=== PATIENT | male | born 1960 | race Caucasian/White ===

== ENCOUNTER 2021-04-26 12:17 | Inpatient (IN) ==
[2021-04-26 13:08] LABS: Basophils % 0.1 %; Hematocrit 33.3 % (37.5-50.1); Hemoglobin 11.2 g/dL (12.9-16.9); Immature Granulocytes % 0.6 % (0-4); Lymphocytes # 1.4 K/mcL (0.6-4.6); Lymphocytes % 15.9 %; Mean Corpuscular HGB Conc 33.6 g/dL (31.6-35.5); Mean Corpuscular Hemoglobin 30.6 pg (28.0-33.3); Mean Platelet Volume 10.4 fL (9.4-12.4); Monocytes # 0.6 K/mcL (0.0-1.3); Monocytes % 7.4 %; Neutrophils # 6.6 K/mcL (1.6-8.9); Platelet Count 185 K/mcL (140-400); Red Blood Count 3.66 M/mcL (4.19-5.50); Red Cell Distribution Width 12.5 % (11.5-14.5); White Blood Count 8.7 K/mcL (4.3-11.1)
[2021-04-26 13:28] LABS: BUN/Creatinine Ratio 28 (6-26); Blood Urea Nitrogen 29 mg/dL (8-23); Calcium 9.7 mg/dL (8.6-10.3); Carbon Dioxide 30 mEq/L (23-29); Chloride 98 mEq/L (98-107); Glucose 433 mg/dL (70-105); Osmolality,Calculated 308 (280-300); Potassium 3.6 mEq/L (3.5-5.1); Sodium 137 mEq/L (136-145); eGFR For African Americans > 60 (> 60); eGFR For Non-African Americans > 60 (> 60)
[2021-04-26 13:59] LABS: Bilirubin,Urine Negative (Negative); Blood,Urine Negative (Negative); Clarity,Urine Clear (Clear); Color,Urine Colorless (Yellow); Glucose,Urine (UA) >=1000 mg/dL (Normal); Ketones,Urine Negative (Negative); Leukocyte Esterase,Urine Negative (Negative); Nitrite,Urine Negative (Negative); Protein,Urine Trace mg/dL (Neg-Trace); RBC,Urine 0-3 per hpf (0-3); Specific Gravity,Urine 1.029 (1.010-1.025); Urobilinogen,Urine Normal (Normal); WBC,Urine 0-3 per hpf (0-3)
[2021-04-26] MEDS ORDERED: *HR* HYDROmorphone (PF) 1 MG/ML SYRINGE IVP ONE (16:55)
[2021-04-26] MEDS ORDERED: Ibuprofen 400 MG TABLET PO PRN (17:20)
[2021-04-26] MEDS ORDERED: Melatonin 3 MG TABLET PO PRN (17:20)
[2021-04-26] MEDS ORDERED: Ondansetron 4 MG/2 ML VIAL IVP PRN (17:20)
[2021-04-26] MEDS ORDERED: Naloxone 0.4 MG/ML INJ IVP PRN (17:20)
[2021-04-26] MEDS ORDERED: Mag Hydrox/Al Hydrox/Simeth 30 ML UDC PO PRN (17:20)
[2021-04-26] MEDS ORDERED: *HR* Dextrose 50 % in Water (Vial) 50 ML VIAL IVP PRN (18:45)
[2021-04-26] MEDS ORDERED: D5% in Water 1,000 ML IVC PRN (18:45)
[2021-04-26] MEDS ORDERED: Dextrose Gel 15 GM/37.5 ML TUBE PO PRN ×2 (18:45)
[2021-04-26] MEDS: *HR* OxyCODONE Immed Rel 5 MG TABLET PO PRN (20:10)
[2021-04-26] MEDS: Insulin LISPRO 300 UNITS/3 ML VIAL SUBQ SCH (20:56)
[2021-04-27] MEDS: Insulin LISPRO 300 UNITS/3 ML VIAL SUBQ SCH ×6 (00:06→16:45)
[2021-04-27] MEDS: *HR* HYDROcodone/Acet 5/325 mg TABLET PO PRN ×2 (00:08→06:38)
[2021-04-27] MEDS: *HR* OxyCODONE Immed Rel 5 MG TABLET PO PRN ×4 (03:25→21:07)
[2021-04-27 08:00] LABS: Basophils % 0.4 %; Eosinophils # 0.2 K/mcL (0.0-0.6); Eosinophils % 1.9 %; Hematocrit 34.3 % (37.5-50.1); Hemoglobin 11.2 g/dL (12.9-16.9); Immature Granulocytes % 0.6 % (0-4); Lymphocytes # 2.9 K/mcL (0.6-4.6); Lymphocytes % 33.9 %; Mean Corpuscular HGB Conc 32.7 g/dL (31.6-35.5); Mean Corpuscular Hemoglobin 30.4 pg (28.0-33.3); Mean Platelet Volume 10.5 fL (9.4-12.4); Monocytes # 0.8 K/mcL (0.0-1.3); Monocytes % 8.8 %; Neutrophils # 4.7 K/mcL (1.6-8.9); Platelet Count 166 K/mcL (140-400); Red Blood Count 3.69 M/mcL (4.19-5.50); Red Cell Distribution Width 12.4 % (11.5-14.5); Segmented Neutrophils % 54.4 %; White Blood Count 8.5 K/mcL (4.3-11.1)
[2021-04-27 08:21] LABS: BUN/Creatinine Ratio 18 (6-26); Blood Urea Nitrogen 17 mg/dL (8-23); Calcium 9.3 mg/dL (8.6-10.3); Carbon Dioxide 30 mEq/L (23-29); Chloride 100 mEq/L (98-107); Glucose 397 mg/dL (70-105); Osmolality,Calculated 300 (280-300); Potassium 3.6 mEq/L (3.5-5.1); Sodium 136 mEq/L (136-145); eGFR For African Americans > 60 (> 60); eGFR For Non-African Americans > 60 (> 60)
[2021-04-27 09:20] LABS: Estimated Average Glucose 177 mg/dl; Hemoglobin A1C 7.8 %
[2021-04-27] MEDS ORDERED: *HR* HYDROmorphone (PF) 1 MG/ML SYRINGE IVP ONE (10:09)
[2021-04-27] MEDS ORDERED: *HR* OxyCODONE/APAP 7.5/325 TABLET PO PRN (10:09)
[2021-04-27] MEDS: Gabapentin 400 MG CAPSULE PO SCH ×3 (10:12→21:07)
[2021-04-27] MEDS ORDERED: *HR* HYDROmorphone (PF) 1 MG/ML SYRINGE IVP PRN (10:22)
[2021-04-27] MEDS ORDERED: Insulin DETEMIR 100 UNIT/ML X5UNITS SUBQ SCH (21:00)
[2021-04-28] MEDS: Insulin LISPRO 300 UNITS/3 ML VIAL SUBQ SCH ×8 (02:50→23:01)
[2021-04-28] MEDS: *HR* OxyCODONE Immed Rel 5 MG TABLET PO PRN ×4 (02:56→22:50)
[2021-04-28] MEDS ORDERED: *HR* Midazolam HCl 2 MG/2 ML VIAL ONE (11:08)
[2021-04-28] MEDS ORDERED: *HR* Propofol 200 MG/20 ML VIAL IVP ONE ×3 (11:08→17:09)
[2021-04-28] MEDS ORDERED: *HR* FentaNYL (PF) 100 MCG/2 ML VIAL ONE (11:08)
[2021-04-28] MEDS ORDERED: Lidocaine HCL 4 ML Topical Solution (Laryng-O-Jet Kit Sterile Pak) TP ONE (11:09)
[2021-04-28] MEDS ORDERED: Ondansetron 4 MG/2 ML VIAL ONE (11:09)
[2021-04-28] MEDS ORDERED: Lidocaine -MPF 2% 2 ML VIAL ONE ×2 (11:09→11:14)
[2021-04-28] MEDS ORDERED: *HR* Rocuronium Bromide 50 MG/5 ML VIAL ONE (11:09)
[2021-04-28] MEDS ORDERED: Heparin 1,000 UNITS/500 mL 500 ML ONE (11:14)
[2021-04-28] MEDS: Gabapentin 400 MG CAPSULE PO SCH ×2 (11:18→18:37)
[2021-04-28] MEDS ORDERED: *HR* Remifentanil 1 MG VIAL IVP ONE ×2 (11:18→15:31)
[2021-04-28] MEDS ORDERED: *HR* Phenylephrine 10 MG/ML VIAL ONE (11:21)
[2021-04-28] MEDS ORDERED: Naloxone 0.4 MG/ML INJ IVP PRN ×2 (11:23→18:53)
[2021-04-28] MEDS ORDERED: Ondansetron 4 MG/2 ML VIAL IVP PRN (11:23)
[2021-04-28] MEDS ORDERED: Albuterol 2.5 MG/3 ML NEBULIZER IH PRN (11:23)
[2021-04-28] MEDS ORDERED: *HR* FentaNYL (PF) 100 MCG/2 ML VIAL IVP PRN (11:23)
[2021-04-28] MEDS ORDERED: Nitroglycerin 0.4 MG TAB.SUBL SL PRN (11:23)
[2021-04-28] MEDS ORDERED: Sugammadex Sodium 200 MG/2 ML VIAL IV ONE ×2 (11:25→14:26)
[2021-04-28] MEDS ORDERED: 0.9 % Sodium Chloride 250 ML IVC SCH (11:30)
[2021-04-28] MEDS ORDERED: Vancomycin 1,000 MG VIAL ONE (12:25)
[2021-04-28] MEDS ORDERED: EPHEDrine 50 MG/ML VIAL ONE (13:39)
[2021-04-28] MEDS ORDERED: *HR* HYDROMORPHONE 2 MG/ML VIAL ONE (16:37)
[2021-04-28] MEDS: *HR* HYDROmorphone (PF) 1 MG/ML SYRINGE IVP PRN ×4 (17:28→17:43)
[2021-04-28] MEDS ORDERED: Polymyxin B Sulfate 500,000 UNIT, Sodium Chloride IRRigation 1,000 ML IR ONE (17:30)
[2021-04-28] MEDS ORDERED: Ringers Solution, Lactated 1,000 ML ONE (17:46)
[2021-04-28] MEDS ORDERED: Ibuprofen 400 MG TABLET PO PRN (18:53)
[2021-04-28] MEDS ORDERED: SILDENAFIL CITRATE 100 MG PO PRN (18:53)
[2021-04-28] MEDS ORDERED: Ibuprofen 800 MG TABLET PO PRN (18:53)
[2021-04-28] MEDS: *HR* HYDROcodone/Acet 5/325 mg TABLET PO PRN (20:14)
[2021-04-28] MEDS: tiZANidine 4 MG TABLET PO PRN (20:40)
[2021-04-28] MEDS: Budesonide/Formoterol 160/4.5 1 PUFF INH IH SCH (20:52)
[2021-04-28] MEDS ORDERED: Insulin DETEMIR 100 UNIT/ML X5UNITS SUBQ SCH (21:00)
[2021-04-28] MEDS: QUEtiapine Fumarate 25 MG TABLET PO SCH (21:56)
[2021-04-28] MEDS ORDERED: ceFAZolin 2,000 MG in 0.9 % Sodium Chloride 100 ML IVPB ONE (23:28)
[2021-04-29] MEDS: Insulin LISPRO 300 UNITS/3 ML VIAL SUBQ SCH ×4 (00:58→16:53)
[2021-04-29] MEDS: Gabapentin 400 MG CAPSULE PO SCH ×4 (00:59→20:24)
[2021-04-29] MEDS: *HR* OxyCODONE Immed Rel 5 MG TABLET PO PRN ×5 (02:47→21:31)
[2021-04-29] MEDS ORDERED: Insulin Regular, Human 100 UNIT/ML SUBQ ONE (04:05)
[2021-04-29] MEDS ORDERED: Insulin LISPRO 300 UNITS/3 ML VIAL SUBQ ONE (05:30)
[2021-04-29] MEDS: *HR* HYDROcodone/Acet 5/325 mg TABLET PO PRN (06:01)
[2021-04-29] MEDS: Budesonide/Formoterol 160/4.5 1 PUFF INH IH SCH ×2 (07:14→20:36)
[2021-04-29] MEDS: Loratadine 10 MG TABLET PO SCH (07:53)
[2021-04-29] MEDS: Cholecalciferol (D-3) 1,000 UNIT (25MCG) TABLET PO SCH (07:54)
[2021-04-29] MEDS: Ringers Solution, Lactated 1,000 ML IVC SCH ×2 (07:54→12:39)
[2021-04-29] MEDS: Fluticasone Propionate Nasal 50 MCG/SPRAY BOTTLE NS SCH (07:57)
[2021-04-29] MEDS ORDERED: Insulin DETEMIR 100 UNIT/ML X5UNITS SUBQ SCH (21:00)
[2021-04-29] MEDS: QUEtiapine Fumarate 25 MG TABLET PO SCH (21:38)
[2021-04-30 01:11] LABS: Basophils % 0.2 %; Eosinophils # 0.1 K/mcL (0.0-0.6); Eosinophils % 0.7 %; Hematocrit 25.4 % (37.5-50.1); Immature Granulocytes % 0.6 % (0-4); Lymphocytes # 2.3 K/mcL (0.6-4.6); Lymphocytes % 26.1 %; Mean Corpuscular HGB Conc 33.9 g/dL (31.6-35.5); Mean Corpuscular Hemoglobin 31.6 pg (28.0-33.3); Mean Corpuscular Volume 93.4 fL (83.0-100.0); Mean Platelet Volume 10.3 fL (9.4-12.4); Monocytes # 1.2 K/mcL (0.0-1.3); Monocytes % 13.7 %; Neutrophils # 5.2 K/mcL (1.6-8.9); Platelet Count 139 K/mcL (140-400); Red Blood Count 2.72 M/mcL (4.19-5.50); Red Cell Distribution Width 12.7 % (11.5-14.5); Segmented Neutrophils % 58.7 %; White Blood Count 8.8 K/mcL (4.3-11.1)
[2021-04-30 01:12] LABS: Hemoglobin 8.6 g/dL (12.9-16.9)
[2021-04-30 01:30] LABS: BUN/Creatinine Ratio 31 (6-26); Blood Urea Nitrogen 39 mg/dL (8-23); Calcium 8.6 mg/dL (8.6-10.3); Carbon Dioxide 28 mEq/L (23-29); Chloride 97 mEq/L (98-107); Glucose 428 mg/dL (70-105); Osmolality,Calculated 302 (280-300); Potassium 3.9 mEq/L (3.5-5.1); Sodium 132 mEq/L (136-145); eGFR For African Americans > 60 (> 60); eGFR For Non-African Americans 58 (> 60)
[2021-04-30] MEDS: *HR* OxyCODONE Immed Rel 5 MG TABLET PO PRN ×5 (02:26→21:15)
[2021-04-30] MEDS: Insulin LISPRO 300 UNITS/3 ML VIAL SUBQ SCH ×3 (04:08→17:13)
[2021-04-30] MEDS: Budesonide/Formoterol 160/4.5 1 PUFF INH IH SCH ×2 (07:35→22:06)
[2021-04-30] MEDS: Cholecalciferol (D-3) 1,000 UNIT (25MCG) TABLET PO SCH (08:22)
[2021-04-30] MEDS: Gabapentin 400 MG CAPSULE PO SCH ×3 (08:23→21:15)
[2021-04-30] MEDS: Fluticasone Propionate Nasal 50 MCG/SPRAY BOTTLE NS SCH (08:25)
[2021-04-30] MEDS: Loratadine 10 MG TABLET PO SCH (08:25)
[2021-04-30] MEDS: Insulin DETEMIR 100 UNIT/ML X5UNITS SUBQ SCH ×2 (09:51→21:17)
[2021-04-30] MEDS: tiZANidine 4 MG TABLET PO PRN ×2 (09:51→17:11)
[2021-04-30] MEDS: QUEtiapine Fumarate 25 MG TABLET PO SCH (21:17)
[2021-05-01 01:02] LABS: Basophils # 0.1 K/mcL (0.0-0.2); Basophils % 0.4 %; Eosinophils # 0.1 K/mcL (0.0-0.6); Hematocrit 26.5 % (37.5-50.1); Hemoglobin 8.7 g/dL (12.9-16.9); Immature Granulocytes % 0.8 % (0-4); Lymphocytes # 3.2 K/mcL (0.6-4.6); Lymphocytes % 28.1 %; Mean Corpuscular HGB Conc 32.8 g/dL (31.6-35.5); Mean Corpuscular Hemoglobin 30.6 pg (28.0-33.3); Mean Corpuscular Volume 93.3 fL (83.0-100.0); Mean Platelet Volume 10.7 fL (9.4-12.4); Monocytes # 1.4 K/mcL (0.0-1.3); Monocytes % 12.5 %; Neutrophils # 6.6 K/mcL (1.6-8.9); Platelet Count 177 K/mcL (140-400); Red Blood Count 2.84 M/mcL (4.19-5.50); Red Cell Distribution Width 12.5 % (11.5-14.5); Segmented Neutrophils % 57.2 %; White Blood Count 11.5 K/mcL (4.3-11.1)
[2021-05-01 01:22] LABS: BUN/Creatinine Ratio 30 (6-26); Blood Urea Nitrogen 32 mg/dL (8-23); Calcium 9.1 mg/dL (8.6-10.3); Carbon Dioxide 27 mEq/L (23-29); Chloride 96 mEq/L (98-107); Glucose 284 mg/dL (70-105); Osmolality,Calculated 285 (280-300); Potassium 3.9 mEq/L (3.5-5.1); Sodium 129 mEq/L (136-145); eGFR For African Americans > 60 (> 60); eGFR For Non-African Americans > 60 (> 60)
[2021-05-01] MEDS: tiZANidine 4 MG TABLET PO PRN ×2 (01:27→13:39)
[2021-05-01] MEDS: *HR* OxyCODONE Immed Rel 5 MG TABLET PO PRN ×4 (01:27→13:38)
[2021-05-01] MEDS: Budesonide/Formoterol 160/4.5 1 PUFF INH IH SCH (07:51)
[2021-05-01] MEDS: Insulin DETEMIR 100 UNIT/ML X5UNITS SUBQ SCH (09:30)
[2021-05-01] MEDS: Insulin LISPRO 300 UNITS/3 ML VIAL SUBQ SCH ×2 (09:30→11:58)
[2021-05-01] MEDS: Gabapentin 400 MG CAPSULE PO SCH ×2 (09:30→15:24)
[2021-05-01] MEDS: Loratadine 10 MG TABLET PO SCH (09:30)
[2021-05-01] MEDS: Cholecalciferol (D-3) 1,000 UNIT (25MCG) TABLET PO SCH (09:30)
[2021-05-01] MEDS: Fluticasone Propionate Nasal 50 MCG/SPRAY BOTTLE NS SCH (09:31)
[2021-05-01 11:16] VITALS: BP 115/68; PULSE 74; TEMP 98.7; O2SAT 97
[2021-05-01] MEDS: *HR* HYDROcodone/Acet 5/325 mg TABLET PO PRN (15:25)
== END 2021-05-01 15:54 | disposition home health service (06) | DRG 304 ==
LOC: EMEROOARM 12:17 → 3NENU 12:17 → SUATTDRO 17:23 → 3NENU 18:41
PROVIDERS: ADMIT Hospitalist; ATTEND Internal Medicine

== ENCOUNTER 2022-03-02 18:21 | Observation (INO) ==
[2022-03-02] MEDS ORDERED: Ondansetron ODT 4 MG TAB.RAPDIS SL PRN (19:25)
[2022-03-02 19:34] LABS: Basophils # 0.1 K/mcL (0.0-0.2); Basophils % 0.7 %; Eosinophils # 0.1 K/mcL (0.0-0.6); Eosinophils % 1.5 %; Hematocrit 20.8 % (37.5-50.1); Hemoglobin 6.8 g/dL (12.9-16.9); Immature Granulocytes % 0.9 % (0-4); Lymphocytes # 3.1 K/mcL (0.6-4.6); Lymphocytes % 35.8 %; Mean Corpuscular HGB Conc 32.7 g/dL (31.6-35.5); Mean Corpuscular Hemoglobin 30.5 pg (28.0-33.3); Mean Corpuscular Volume 93.3 fL (83.0-100.0); Mean Platelet Volume 10.4 fL (9.4-12.4); Monocytes # 0.9 K/mcL (0.0-1.3); Monocytes % 10.3 %; Neutrophils # 4.3 K/mcL (1.6-8.9); Nucleated Red Blood Cells 1.2 /100 WBC (0); Platelet Count 151 K/mcL (140-400); Red Blood Count 2.23 M/mcL (4.19-5.50); Red Cell Distribution Width 17.2 % (11.5-14.5); Segmented Neutrophils % 50.8 %; White Blood Count 8.5 K/mcL (4.3-11.1)
[2022-03-02] MEDS ORDERED: Pantoprazole 40 MG VIAL IVP SCH (19:47)
[2022-03-02 19:55] LABS: BUN/Creatinine Ratio 50 (6-26); Blood Urea Nitrogen 70 mg/dL (8-23); Calcium 8.6 mg/dL (8.6-10.3); Carbon Dioxide 25 mEq/L (23-29); Chloride 105 mEq/L (98-107); Glucose 230 mg/dL (70-105); Osmolality,Calculated 312 (280-300); Potassium 3.9 mEq/L (3.5-5.1); Sodium 137 mEq/L (136-145); eGFR For African Americans > 60 (> 60); eGFR For Non-African Americans 52 (> 60)
[2022-03-02] MEDS ORDERED: Iopamidol - 370 500 ML MLS IVP ONE (20:11)
[2022-03-02] MEDS ORDERED: methylPREDNISolone 125 MG/2 ML VIAL IVP ONE (20:12)
[2022-03-02] MEDS: Pantoprazole 40 MG in 0.9 % Sodium Chloride Mini Bag 100 ML IVC SCH (20:16)
[2022-03-02] MEDS ORDERED: Ondansetron 4 MG/2 ML VIAL IVP PRN (20:22)
[2022-03-02] MEDS ORDERED: Naloxone 0.4 MG/ML INJ IVP PRN (20:22)
[2022-03-02] MEDS ORDERED: Dextrose Gel 15 GM/37.5 ML TUBE PO PRN ×2 (21:13)
[2022-03-02] MEDS ORDERED: D5% in Water 1,000 ML IVC PRN (21:13)
[2022-03-02] MEDS ORDERED: *HR* Dextrose 50 % in Water (Syg) 50 ML SYRINGE IVP PRN (21:13)
[2022-03-02] MEDS ORDERED: Gabapentin 400 MG CAPSULE PO STA (21:15)
[2022-03-02] MEDS ORDERED: 0.9 % Sodium Chloride 500 ML ONE (21:22)
[2022-03-02] MEDS ORDERED: *HR* LORazepam 2 MG/ML VIAL IVP STA (22:11)
[2022-03-02] MEDS ORDERED: Saliva Stimulant 44.3ml BOTTLE PO PRN (23:35)
[2022-03-02] MEDS ORDERED: Ipratropium/Albuterol Neb 3 ML IH PRN (23:39)
[2022-03-03] MEDS ORDERED: traZODone 50 MG TABLET PO ONE (00:17)
[2022-03-03] MEDS: Melatonin 3 MG TABLET PO PRN ×2 (00:41→23:56)
[2022-03-03] MEDS: Ringers Solution, Lactated 1,000 ML IVC SCH ×2 (00:46→14:52)
[2022-03-03] MEDS: QUEtiapine Fumarate 25 MG TABLET PO SCH ×3 (00:46→19:59)
[2022-03-03] MEDS: Pantoprazole 40 MG in 0.9 % Sodium Chloride Mini Bag 100 ML IVC SCH ×5 (00:46→18:47)
[2022-03-03 02:02] LABS: Basophils % 0.3 %; Eosinophils % 0.4 %; Hematocrit 20.7 % (37.5-50.1); Hemoglobin 6.8 g/dL (12.9-16.9); Immature Granulocytes % 1.5 % (0-4); Immature Reticulocyte % 44.1 % (11.0-38.0); Lymphocytes # 0.8 K/mcL (0.6-4.6); Lymphocytes % 10.3 %; Mean Corpuscular HGB Conc 32.9 g/dL (31.6-35.5); Mean Corpuscular Hemoglobin 30.8 pg (28.0-33.3); Mean Corpuscular Volume 93.7 fL (83.0-100.0); Mean Platelet Volume 10.4 fL (9.4-12.4); Monocytes # 0.1 K/mcL (0.0-1.3); Monocytes % 1.1 %; Neutrophils # 6.5 K/mcL (1.6-8.9); Nucleated Red Blood Cells 0.8 /100 WBC (0); Platelet Count 125 K/mcL (140-400); Red Blood Count 2.21 M/mcL (4.19-5.50); Red Cell Distribution Width 16.5 % (11.5-14.5); Retculocyte # 0.14 M/mcL (0.05-0.10); Reticulocyte % 6.4 % (1.6-2.8); Segmented Neutrophils % 86.4 %; White Blood Count 7.6 K/mcL (4.3-11.1)
[2022-03-03 02:18] LABS: INR 1.1; Prothrombin Time 12.3 Seconds (9.4-12.1)
[2022-03-03 02:20] LABS: Alanine Aminotransferase 12 Units/L (7-52); Albumin 3.2 g/dL (3.5-5.7); Albumin/Globulin Ratio 1.3 (1.1-2.2); Alkaline Phosphatase 68 Units/L (34-104); Aspartate Amino Transferase 15 Units/L (13-39); BUN/Creatinine Ratio 47 (6-26); Bilirubin,Total 0.6 mg/dL (0.3-1.0); Blood Urea Nitrogen 62 mg/dL (8-23); Carbon Dioxide 20 mEq/L (23-29); Chloride 105 mEq/L (98-107); Globulin 2.4 g/dL (2.4-3.5); Glucose 369 mg/dL (70-105); Magnesium 1.6 mg/dL (1.6-2.6); Osmolality,Calculated 309 (280-300); Phosphorous 2.9 mg/dL (2.7-4.5); Potassium 3.9 mEq/L (3.5-5.1); Sodium 133 mEq/L (136-145); Total Protein 5.6 g/dL (6.4-8.9); eGFR For African Americans > 60 (> 60); eGFR For Non-African Americans 55 (> 60)
[2022-03-03 02:21] LABS: Activated Partial Thrombo Time 28.1 Seconds (26.0-36.0)
[2022-03-03 02:36] LABS: Thyroid Stimulating Hormone 2.23 mcIU/mL (0.340-5.600)
[2022-03-03 02:46] LABS: Folate 7.8 ng/mL (3.0-16.0)
[2022-03-03 03:28] LABS: Estimated Average Glucose 128 mg/dl; Hemoglobin A1C 6.1 %
[2022-03-03] MEDS ORDERED: Insulin DETEMIR 100 UNIT/ML X5UNITS SUBQ ONE (06:47)
[2022-03-03] MEDS: Gabapentin 400 MG CAPSULE PO SCH ×4 (07:43→19:55)
[2022-03-03] MEDS: Nicotine 21 MG PATCH.TD24 TD SCH (07:43)
[2022-03-03] MEDS ORDERED: 0.9 % Sodium Chloride 250 ML ONE (09:22)
[2022-03-03] MEDS: Budesonide/Formoterol 160/4.5 1 PUFF INH IH SCH ×2 (10:29→20:11)
[2022-03-03] MEDS ORDERED: Lidocaine -MPF 2% 2 ML VIAL ONE ×2 (12:34→12:39)
[2022-03-03] MEDS ORDERED: *HR* Propofol 200 MG/20 ML VIAL IVP ONE ×2 (12:36→13:55)
[2022-03-03] MEDS: Insulin LISPRO 300 UNITS/3 ML VIAL SUBQ SCH ×3 (12:42→23:55)
[2022-03-03] MEDS: Acetaminophen 325 MG TABLET PO PRN ×2 (14:27→23:56)
[2022-03-03 16:27] LABS: Hematocrit 23.1 % (37.5-50.1); Hemoglobin 7.3 g/dL (12.9-16.9)
[2022-03-03] MEDS ORDERED: Lidocaine 4% CREAM (LMX) 5 GM TP PRN (17:53)
[2022-03-03] MEDS: Budesonide/Formoterol 80/4.5 1 PUFF INH IH SCH (20:13)
[2022-03-03] MEDS ORDERED: Dextrose Gel 15 GM/37.5 ML TUBE PO PRN ×2 (21:11)
[2022-03-03] MEDS ORDERED: D5% in Water 1,000 ML IVC PRN (21:11)
[2022-03-03] MEDS ORDERED: *HR* Dextrose 50 % in Water (Syg) 50 ML SYRINGE IVP PRN (21:11)
[2022-03-03] MEDS ORDERED: Insulin LISPRO 300 UNITS/3 ML VIAL SUBQ SCH (21:15)
[2022-03-04 02:07] LABS: Hematocrit 22.6 % (37.5-50.1); Hemoglobin 7.1 g/dL (12.9-16.9)
[2022-03-04 02:19] LABS: Albumin 3.3 g/dL (3.5-5.7); Albumin/Globulin Ratio 1.4 (1.1-2.2); Bilirubin,Direct 0.1 mg/dL (0.0-0.2); Bilirubin,Indirect 0.3 mg/dL (0.0-1.0); Bilirubin,Total 0.4 mg/dL (0.3-1.0); Calcium 8.5 mg/dL (8.6-10.3); Globulin 2.4 g/dL (2.4-3.5); Potassium 3.7 mEq/L (3.5-5.1); Total Protein 5.7 g/dL (6.4-8.9)
[2022-03-04] MEDS: Pantoprazole 40 MG in 0.9 % Sodium Chloride Mini Bag 100 ML IVC SCH (02:40)
[2022-03-04] MEDS: Insulin LISPRO 300 UNITS/3 ML VIAL SUBQ SCH (07:28)
[2022-03-04] MEDS: Budesonide/Formoterol 80/4.5 1 PUFF INH IH SCH (07:59)
[2022-03-04] MEDS: Budesonide/Formoterol 160/4.5 1 PUFF INH IH SCH (07:59)
[2022-03-04] MEDS ORDERED: 0.9 % Sodium Chloride 1,000 ML IVC SCH (09:15)
[2022-03-04] MEDS: Nicotine 21 MG PATCH.TD24 TD SCH (09:29)
[2022-03-04] MEDS: Gabapentin 400 MG CAPSULE PO SCH (09:30)
[2022-03-04 11:28] VITALS: BP 115/65; PULSE 61; TEMP 97.5; O2SAT 98
[2022-03-04 13:12] LABS: Bilirubin,Urine Negative (Negative); Blood,Urine Negative (Negative); Clarity,Urine Clear (Clear); Color,Urine Colorless (Yellow); Glucose,Urine (UA) 150 mg/dL (Normal); Ketones,Urine Negative (Negative); Leukocyte Esterase,Urine Negative (Negative); Mucus,Urine Few per lpf (None-Few); Nitrite,Urine Negative (Negative); Protein,Urine Negative (Neg-Trace); RBC,Urine 0-3 per hpf (0-3); Specific Gravity,Urine 1.016 (1.010-1.025); Squamous Epithelial Cell,Urine Few per hpf (None-Few); Urobilinogen,Urine Normal (Normal); WBC,Urine 0-3 per hpf (0-3)
[2022-03-04 13:23] LABS: Hematocrit 24.1 % (37.5-50.1); Hemoglobin 7.6 g/dL (12.9-16.9)
[2022-03-04] MEDS ORDERED: Patient Taking Own Medication 1 EACH SUBQ SCH (17:00)
[2022-03-04] MEDS ORDERED: Pantoprazole 40 MG VIAL IVP SCH (18:00)
[2022-03-04] MEDS ORDERED: traZODone 50 MG TABLET PO SCH (21:00)
== END 2022-03-04 14:42 | disposition left against medical advice (07) ==
LOC: SUATTDRO → 3ANU 18:21 → EMEROOARM 18:21 → SUATTDRO 21:24 → 3ANU 22:34
PROVIDERS: ADMIT Internal Medicine; ATTEND Internal Medicine